=== PATIENT | female | born 1955 | race Hispanic/Latino ===

== ENCOUNTER 2017-08-16 13:52 | Outpatient (CLI) | payer OTHER ==
--- NOTE | 2017-08-18 16:55 | MMO ---
BILATERAL SCREENING MAMMOGRAM 08/16/17 HISTORY: Screening. COMPARISON: Mammogram 01/03/142012. FINDINGS: Bilateral screening CC and MLO mammograms performed with computer aided detection. No suspicious mass , architectural distortion or microcalcifications. Punctate calcification in the right breast and lef t breast. IMPRESSION: BI-RADS 2: Benign Finding(s) Routine annual screening mammography (for women over age 40). POS: JOIE
== END 2017-08-16 13:53 | disposition home or self-care (01) ==
LOC: SCSMAMMO 13:52
PROVIDERS: ATTEND Family Medicine
DX: Z12.31 Encounter for screening mammogram for malignant neoplasm of breast (principal)
CPT/HCPCS: 77067

== ENCOUNTER 2018-04-20 05:56 | Day surgery (SDC) | payer OTHER ==
--- NOTE | 2018-04-18 21:33 | HP ---
DATE OF ADMISSION: 04/20/2018 HISTORY OF PRESENT ILLNESS: This is a 63-year-old Latin-Japanese female with dysphagia of recent ons et. She describes eating mostly meat and bread. She has no odynophagia. The patient is here for EG D because of dysphagia. ALLERGIES: None. SOCIAL HISTORY: The patient does not smoke or drink alcohol. MEDICAL ILLNESSES: 1. Hypothyroidism. 2. Chronic acid reflux. 3. Appendectomy. 4. Hysterectomy. 5. Right knee surgery. PHYSICAL EXAMINATION: VITAL SIGNS: Pulse is 70, blood pressure 130/80. HEENT: Conjunctivae clear. CARDIOVASCULAR: First and second heart sounds normal. LUNGS: Clear to auscultation. ABDOMEN: Soft, abdomen is nontender. There is no organomegaly or masses. Bowel sounds normal. ADMITTING DIAGNOSIS: Dysphagia. PLAN: EGD and possible dilation.
[2018-04-19 11:13] VITALS: BMI 31.4
--- NOTE | 2018-04-20 11:03 | OP ---
DATE OF PROCEDURE: 04/20/2018 OPERATIVE PROCEDURE: 1. Esophagogastroduodenoscopy with biopsy. 2. Esophageal dilation with 50-Syrian Osman dilator. PREOPERATIVE DIAGNOSIS: Dysphagia. POSTOPERATIVE DIAGNOSES: 1. No esophageal stricture seen. 2. Gastritis. 3. Normal duodenum. PROCEDURE IN DETAIL: The patient was placed on her left lateral position and was given sedation by Anesthesia Department. A Pentax video gastroscope under direct vision was passed down the oropharynx, past the GE junction, into the stomach. The vocal cords appeared healthy. Although the patient complains of dysphagia to solid food, at endoscopy the esophageal lumen was actually wide open. There is no esophagitis seen. The GE junction, no pathology seen. Retroflexion failed to show any pathology in the fundus or cardia. The gastric body and antrum shows patchy areas of mucosal edema, erythema. Biopsy was obtained from the gastric antrum and gastric body. The incisura angularis, no pathology seen. The scope was advanced into the duodenal bulb, descending duodenum. No pathology seen. The stomach was decompressed and the scope removed. An empiric dilation was done with a 50-Syrian Osman dilator because of the history of dysphagia. _This was advanced into the stomach without any resistance. The patient was rescoped again and there are no complications noted. The stomach was decompressed and the scope removed. DISCHARGE PLANNING: This is a 63-year-old Latin-[place] female who came for an EGD because of history of dysphagia to solid food. The EGD actually showed no esophageal stricture. She underwent empiric dilation with a 50 Syrian Osman dilator. DISCHARGE RECOMMENDATIONS: 1. The patient advised to call me if she develops any chest discomfort, abdominal pain, or melena. 2. In the absence of any of the above symptoms, she is to come back to me in 2 weeks. MTDD
[2018-04-20] MEDS ORDERED: PROPOFOL 200 MG/20 ML VIAL ONE (17:34)
== END 2018-04-20 09:05 | disposition home or self-care (01) ==
LOC: SDC 05:56
PROVIDERS: ATTEND Internal Medicine Gastroenterology
PROC: 0D757ZZ Dilation of Esophagus, Via Natural or Artificial Opening (ICD-10-PCS; principal; 2018-04-20)
PROC: 0DB68ZX Excision of Stomach, Via Natural or Artificial Opening Endoscopic, Diagnostic (ICD-10-PCS; principal; 2018-04-20)
DX: K29.50 Unspecified chronic gastritis without bleeding (principal); R13.10 Dysphagia, unspecified; E03.9 Hypothyroidism, unspecified; K21.9 Gastro-esophageal reflux disease without esophagitis; Z79.899 Other long term (current) drug therapy
CPT/HCPCS: 88305; 88312; J2704

== ENCOUNTER 2018-09-07 13:38 | Outpatient (CLI) | payer OTHER ==
--- NOTE | 2018-09-12 13:24 | MMO ---
Bilateral MAMMO Bilat Screen DDI. CLINICAL HISTORY: Patient is 63 years old and is seen for screening. The patient has no family history of breast cancer. The patient has no personal history of cancer. VIEWS: The views performed were: bilateral craniocaudal and bilateral mediolateral oblique. FILMS COMPARED: The present examination has been compared to prior imaging studies performed at 08/16/2017, and at [facility] on 10/01/1999, 12/31/2009, 08/10/2011, 03/27/2013, 04/04/2014 and 03/04/2016. This study has been interpreted with the assistance of computer-aided detection. MAMMOGRAM FINDINGS: There are scattered fibroglandular densities. There is a focal asymmetry seen in the sub-areolar region of the left breast. The assymetry appears more nodular and dense than on prior exams. There are no suspicious masses, calcifications or architectural distortion in the right breast. In the right breast, there are no suspicious masses, calcifications or areas of architectural distortion. IMPRESSION: FOCAL ASYMMETRY IN THE LEFT BREAST REQUIRES ADDITIONAL EVALUATION. AN ULTRASOUND EXAM IS RECOMMENDED IF NEEDED. RECOMMEND DIAGNOSTIC MAMMOGRAM. ACR BI-RADS Category 0 - Incomplete: Need additional imaging evaluation. [facility] will notify the patient of the need for additional imaging services. MAMMOGRAPHY NOTE: 1. A negative mammogram report should not delay a biopsy if a dominant of clinically suspicious mass is present. 2. Approximately 10% to 15% of breast cancers are not detected by mammography. 3. Adenosis and dense breasts may obscure an underlying neoplasm.
== END 2018-09-07 13:39 | disposition home or self-care (01) ==
LOC: SCSMAMMO 13:38
PROVIDERS: ATTEND Family Medicine
DX: Z12.31 Encounter for screening mammogram for malignant neoplasm of breast (principal)
CPT/HCPCS: 77067

== ENCOUNTER 2018-09-15 14:15 | Outpatient (CLI) | payer OTHER ==
--- NOTE | 2018-09-16 11:56 | MMO ---
Left Breast MAMMO Unilat Diag DDI LT+LOKI. CLINICAL HISTORY: Patient is 63 years old and is seen for additional evaluation requested at current screening. The patient has no family history of breast cancer. The patient has no personal history of cancer. VIEWS: The views performed were: left craniocaudal spot compression with tomosynthesis; left mediolateral oblique spot compression with tomosynthesis; and left mediolateral with tomosynthesis. FILMS COMPARED: The present examination has been compared to prior imaging studies performed at 08/16/2017 and 09/07/2018, and at [facility] on 10/01/1999, 12/31/2009, 08/10/2011, 03/27/2013, 04/04/2014 and 03/04/2016. MAMMOGRAM FINDINGS: There are scattered fibroglandular densities. Additional evaluation was performed for the focal asymmetry in the left breast, sub-areolar seen on 09/07/2018. On the present examination, focal asymmetry in the left breast, sub-areolar does not persist. There are no suspicious masses, suspicious calcifications, or new areas of architectural distortion. IMPRESSION: THERE IS NO MAMMOGRAPHIC EVIDENCE OF MALIGNANCY. THE FINDINGS AND RECOMMENDATIONS WERE DISCUSSED WITH THE PATIENT PRIOR TO HER LEAVING THE CENTER. A ROUTINE FOLLOW-UP MAMMOGRAM IN 1 YEAR IS RECOMMENDED. THE RESULTS OF THIS EXAM WERE SENT TO THE PATIENT. ACR BI-RADS Category 2 - Benign finding MAMMOGRAPHY NOTE: 1. A negative mammogram report should not delay a biopsy if a dominant of clinically suspicious mass is present. 2. Approximately 10% to 15% of breast cancers are not detected by mammography. 3. Adenosis and dense breasts may obscure an underlying neoplasm.
== END 2018-09-15 14:16 | disposition home or self-care (01) ==
LOC: BICMAMMO 14:15
PROVIDERS: ATTEND Family Medicine
DX: R92.2 Inconclusive mammogram (principal)
CPT/HCPCS: G0279

== ENCOUNTER 2020-04-26 08:17 | Outpatient (CLI) | payer MEDICARE, OTHER ==
--- NOTE | 2020-04-26 16:03 | MRI ---
MR CERVICAL SPINE WITHOUT CONTRAST INDICATION: 65-year-old female with neck pain with right radicular symptoms TECHNIQUE: Multiplanar multisequence MR images were obtained of the cervical spine without contrast. COMPARISON: None FINDINGS: Posterior fossa: Within normal limits. Bone marrow signal intensity: Normal Spinal alignment: Normal. Craniocervical junction: Normal appearing. Prevertebral and perivertebral soft tissues: Visualized soft tissues appear within normal limits. Vertebral levels: C2-C3: There is a small central disc protrusion. There is moderate left and mild right facet joint de generative change. There is no appreciable central canal or neural foraminal narrowing. C3-4: There is a broad-based disc bulge with a superimposed central protrusion causing mild central c anal narrowing without cord a splint. There is uncovertebral hypertrophy and facet joint degenerative change inducing mild right neural foraminal narrowing. C4-5: There is a broad-based disc bulge causing moderate central canal narrowing and mild ventral ef facement of the spinal cord. The disc bulge in addition to uncovertebral hypertrophy and facet joint degenerative change inducing moderate right and severe left neural foraminal narrowing. C5-C6: There is a broad-based disc bulge with uncovertebral hypertrophy and facet joint degenerative change inducing severe bilateral neural foraminal narrowing and moderate central canal narrowing with mild ventral effacement of the spinal cord. C6-C7: There is a broad-based disc bulge inducing mild to moderate central canal narrowing with mild ventral contact of the spinal cord. There is severe bilateral neural foraminal narrowing. C7-T1: No appreciable central canal or neuroforaminal narrowing. IMPRESSION: 1. Moderate cervical spondylosis. 2. Multilevel central canal and neural foraminal narrowing as above. This is most prominent at C4-5 t hrough C6-7.
== END 2020-04-26 08:18 | disposition home or self-care (01) ==
LOC: SCSMRI 08:17
PROVIDERS: ATTEND Family Medicine
DX: M47.22 Other spondylosis with radiculopathy, cervical region (principal); M48.02 Spinal stenosis, cervical region
CPT/HCPCS: 72141

== ENCOUNTER 2022-01-05 08:22 | Outpatient (CLI) | payer MEDICARE, OTHER | END 2022-01-05 08:23 | disposition home or self-care (01) | LOC: BICMAMMO 08:22 | PROVIDERS: ATTEND Family Medicine | DX: Z12.31 Encounter for screening mammogram for malignant neoplasm of breast (principal); Z78.0 Asymptomatic menopausal state; M85.89 Other specified disorders of bone density and structure, multiple sites | CPT/HCPCS: 77063; 77067; 77080 ==